=== PATIENT | male | born 1985 ===

== ENCOUNTER 2020-10-13 15:39 | Emergency (ER) | payer MEDICAID, OTHER ==
[~2020-10-13] VITALS: Ht 172.7 cm; Wt 90.7 kg
[2020-10-13 15:49] VITALS: BP 123/78
== END 2020-10-13 20:41 | disposition left against medical advice (07) ==
LOC: ER 15:39
DX: L02.31 Cutaneous abscess of buttock (principal); Z53.21 Procedure and treatment not carried out due to patient leaving prior to being seen by health care provider

== ENCOUNTER 2022-08-26 20:14 | Emergency (ER) | payer MEDICAID ==
[~2022-08-26] VITALS: Ht 182.9 cm; Wt 84.1 kg
[2022-08-26] MEDS ORDERED: LORazepam 2MG/ML-1ML VIAL IM ONE (21:15)
[2022-08-26] MEDS ORDERED: BUPRENORPHINE -NALOXONE 8-2mg SL TAB SL ONE (21:15)
[2022-08-27 05:00] VITALS: BP 112/68
== END 2022-08-27 06:39 | disposition home or self-care (01) ==
LOC: EDBD 20:14 → ER 20:14
DX: F11.13 Opioid abuse with withdrawal (principal); F17.210 Nicotine dependence, cigarettes, uncomplicated; F12.90 Cannabis use, unspecified, uncomplicated; F15.90 Other stimulant use, unspecified, uncomplicated; Z59.00 Homelessness unspecified
CPT/HCPCS: 93005; 96372; 99283; J2060